=== PATIENT | female | born 1935 | race Caucasian/White ===

== ENCOUNTER 2017-08-15 17:30 | Observation (INO) | payer OTHER ==
[2017-08-15 19:03] LABS: BASO % 0.6 % (0-2.0); EOS % 1.1 % (0-4.5); HEMATOCRIT 43.7 % (32.4-45.2); HEMOGLOBIN 14.5 GM/dl (10.7-15.3); MCH 29.7 pg (25.7-33.7); MCHC 33.2 g/dl (32.0-36.0); MEAN CELL VOLUME 89.5 fl (80-96); MEAN PLT VOLUME 8.9 fl (7.5-11.1); MONO % 7.9 % (3.8-10.2); NEUT % 76.4 % (42.8-82.8); PLATELET COUNT 230 K/MM3 (134-434); RBC 4.89 M/mm3 (3.60-5.2); RDW 14.8 % (11.6-15.6); WHITE BLOOD COUNT 8.2 K/mm3 (4.0-10.8)
--- NOTE | 2017-08-15 19:04 | PDOC ---
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 Liriano's office with facial cellulitis. Patient has been having recurring epistaxis since being placed on Eliquis, yesterday was noted to have redness to the right Allan, today it extended to the right face with some soft tissue swelling. She went to see Dr. Liriano, who referred to the emergency department for IV antibiotics and likely admission. No dental pain, no painful or difficulty swallowing, no difficulty breathing. No fevers or chills. Past History - Past Medical History Allergies/Adverse Reactions: Allergies Allergy/AdvReac Type Severity Reaction Status Date / Time acetaminophen [From Percocet] Allergy Severe delirium Verified 08/15/17 17:31 MEAGHAN Inhibitors Allergy Intermediate cough Verified 08/15/17 17:32 oxycodone HCl [From Percocet] Allergy Intermediate delirium Verified 08/15/17 17 :32 Home Medications: Ambulatory Orders Apixaban [Eliquis] 5 mg PO BID 08/15/17 Ascorbic Acid [C-1000] 1,000 mg PO DAILY 08/15/17 Atenolol [Tenormin] 50 mg PO DAILY 08/15/17 Atorvastatin Ca [Lipitor] 80 mg PO HS 08/15/17 Bimatoprost [Lumigan] 1 drop IO DAILY 08/15/17 Calcium Citrate/Vitamin D3 [Calcitrate + Vit D Caplet] 1 tab PO DAILY 08/15/17 Famotidine 20 mg PO DAILY 08/15/17 Furosemide [Lasix] 40 mg PO DAILY 08/15/17 Levothyroxine [Synthroid -] 25 mcg PO DAILY 08/15/17 Mv-Min/FA/Vit K/Lycop/Lut/Zeax [Ocuvite Eye Plus Multi Tablet] 1 tab PO DAILY Potassium Chloride 20 meq PO DAILY 08/15/17 Tamsulosin HCl 0.4 mg PO DAILY 08/15/17 Timolol [Betimol] 5 ml OP DAILY 08/15/17 Valsartan 160 mg PO DAILY 08/15/17 Cardiac Disorders: Yes (A FIB) CVA: Yes COPD: No Diabetes: Yes HTN: Yes Other medical history: HERPES ZOSTER,OSTEOPOROSIS,ARTHRITIS, HYPONATREMIA, HYPOTHYROIDISM,HEMATURIA - Suicide/Smoking/Psychosocial Hx Smoking History: Never smoked Have you smoked in the past 12 months: No Information on smoking cessation initiated: No Hx Alcohol Use: No Drug/Substance Use Hx: No Substance Use Type: Alcohol Review of Systems - Review of Systems Constitutional: No: Chills, Fever HEENTM: Yes: See HPI. No: Throat Swelling Respiratory: No: Cough, Shortness of Breath, Stridor Cardiac (ROS): No: Chest Pain ABD/GI: No: Blood Streaked Bowels, Vomiting All Other Systems: Reviewed and Negative *Physical Exam - Vital Signs Last Vital Signs Temp Pulse Resp BP Pulse Ox 98.4 F 88 16 136/79 97 08/15/17 17:31 08/15/17 17:31 08/15/17 17:31 08/15/17 17:31 08/15/17 17:31 - Physical Exam Comments: 08/15/17 19:04 Afebrile. GENERAL: The patient is awake, alert, and fully oriented, in no acute distress. HEAD: Normal with no signs of trauma. EYES: PERRL, EOMI, sclera anicteric, conjunctiva clear with no pallor. ENT: R naris inflamed and erythematous, tender to touch. erythema extending to R face and neck. There is tender swelling to R soft tissue over mandible, ? salivary gland but no visible calcification or obstruction. no LAD. oropharynx clear without exudates or stridor. Moist mucous membranes. NECK: Normal range of motion, supple without lymphadenopathy, JVD, or masses. LUNGS: Breath sounds equal, clear to auscultation bilaterally. No wheeze/ crackles. HEART: normal rate, irregular rhythm, normal S1 and S2 without murmur or rub. ABDOMEN: Soft/nontender/nondistended. BS wnl. No guarding or rebound. No palpable masses. No hepatosplenomegaly. EXTREMITIES: Normal range of motion, no edema. 2+ distal pulses. No cords, erythema, or tenderness. NEUROLOGICAL: Cranial nerves II through XII grossly intact. Normal speech, normal gait. PSYCH: Normal mood, normal affect. SKIN: as noted Heart Score/ECG Review #1 ECG reviewed & interpreted by me at: 18:48 08/15/17 19:07 Atrial fibrillation at 106, no acute ischemic changes. ED Treatment Course - LABORATORY CBC & Chemistry Diagram: 08/15/17 18:40 08/15/17 18:39 Medical Decision Making - Medical Decision Making 08/15/17 19:07 82-year-old female from Dr. Liriano's office for admission for right facial cellulitis. Question superimposed salivary gland obstruction versus facial cellulitis extending from right naris. No airway involvement, well-appearing, afebrile. Labs sent Will start empiric IV vancomycin given recent admission for CVA Admission, symphony covering Dr. Liriano. 08/15/17 19:19 normal wbc. Accepted for inpatient med/surg by Dr. Galeana *DC/Admit/Observation/Transfer Diagnosis at time of Disposition: Salivary gland obstruction Cellulitis Qualifiers: Site of cellulitis: face Qualified Code(s): L03.211 - Cellulitis of face - Discharge Dispostion Condition at time of disposition: Stable Admit: Yes - Referrals - Patient Instructions - Post Discharge Activity
[2017-08-15 19:06] LABS: INR 1.68 (0.82-1.09); PROTHROMBIN TIME (PATIENT) 18.6 SEC (10.2-13.0)
[2017-08-15 19:11] LABS: ALBUMIN 3.3 g/dl (3.5-5.0); ALK PHOS 171 U/L (32-92); ANION GAP 4 (8-16); BILIRUBIN,TOTAL 1.1 mg/dl (0.2-1.0); BLOOD UREA NITROGEN 16 mg/dl (7-18); CALCIUM 8.7 mg/dl (8.4-10.2); CHLORIDE 98 mmol/L (98-107); CO2 30 mmol/L (22-28); GLUCOSE,RANDOM 115 mg/dl (74-106); POTASSIUM 3.5 mmol/L (3.5-5.1); SGOT/AST 26 U/L (10-42); SGPT/ALT 32 U/L (10-40); SODIUM 132 mmol/L (136-145); TOT PROT 6.4 g/dl (6.4-8.3)
[2017-08-15] MEDS ORDERED: VANCOMYCIN 1,000 MG in DEXTROSE 5%-WATER - 250 ML IVPB ONE (19:11)
[2017-08-15] MEDS ORDERED: VANCOMYCIN 1,000 MG VIAL (RESTRICTED TO ID ONLY) ONE (19:20)
[2017-08-15 19:30] LABS: CREATININE 0.8 mg/dl (0.6-1.3)
[2017-08-15] MEDS ORDERED: PIPERACILLIN/TAZOB 3.375 GM/50 ML PRE-DOCKED IVPB ONE (22:37)
[2017-08-15 22:45] VITALS: BMI 23.7
[2017-08-15] MEDS ORDERED: SODIUM CHLORIDE 1,000 ML IV SCH (22:45)
[2017-08-15] MEDS: ATORVASTATIN CA 80 MG TABLET (FP) PO SCH (22:57)
[2017-08-15] MEDS: APIXABAN 5 MG TABLET PO SCH (22:58)
--- NOTE | 2017-08-16 01:05 | HP ---
CHIEF COMPLAINT: redness right side of face with swelling PCP: Deandra HISTORY OF PRESENT ILLNESS: This is an 82 year old female with a past medical history significant for recent CVA, afib on eliquis with chronic nose bleeds. Pt reports she had a scab on the inside of her right nostril and then Monday her son noticed it was getting red and then when she awoke on Monday the right side of her face was swollen. Pt also reports pain to the jawline. ER course was notable for: (1) WBC 8.2 (2) Sodium 132 Recent Travel: pt denies PAST MEDICAL HISTORY: HTN, CVA in April, Afib on Eliquis, herpes zoster L thigh, osteoporosis, osteoarthritis, hyponatremia, hypothyroidism, hematuria, bladder infections PAST SURGICAL HISTORY: hysterectomy tonsillectomy L TKR 2005 R TKR 2007 Social History: Smoking: pt denies Alcohol: pt denies Drugs: pt denies Family History: mother age 89, complications of hip fracture, [place] age 84 father age 78, unk no siblings Allergies acetaminophen [From Percocet] Allergy (Severe, Verified 08/15/17 17:31) delirium MEAGHAN Inhibitors Allergy (Intermediate, Verified 08/15/17 17:32) cough oxycodone HCl [From Percocet] Allergy (Intermediate, Verified 08/15/17 17:32) delirium HOME MEDICATIONS: 3 Medication Instructions Recorded Apixaban [Eliquis] 5 mg PO BID 08/15/17 Ascorbic Acid [C-1000] 1,000 mg PO DAILY 08/15/17 Atenolol [Tenormin] 50 mg PO DAILY 08/15/17 Atorvastatin Ca [Lipitor] 80 mg PO HS 08/15/17 Bimatoprost [Lumigan] 1 drop IO DAILY 08/15/17 Calcium Citrate/Vitamin D3 1 tab PO DAILY 08/15/17 [Calcitrate + Vit D Caplet] Famotidine 20 mg PO DAILY 08/15/17 Furosemide [Lasix] 40 mg PO DAILY 08/15/17 Levothyroxine [Synthroid -] 25 mcg PO DAILY 08/15/17 Mv-Min/FA/Vit K/Lycop/Lut/Zeax 1 tab PO DAILY 08/15/17 [Ocuvite Eye Plus Multi Tablet] Potassium Chloride 20 meq PO DAILY 08/15/17 Tamsulosin HCl 0.4 mg PO DAILY 08/15/17 Timolol [Betimol] 5 ml OP DAILY 08/15/17 Valsartan 160 mg PO DAILY 08/15/17 REVIEW OF SYSTEMS CONSTITUTIONAL: Absent: fever, chills, diaphoresis, generalized weakness, malaise, loss of appetite, weight change HEENT: Present: right facial swelling and erythema Absent: rhinorrhea, nasal congestion, throat pain, throat swelling, difficulty swallowing, mouth swelling, ear pain, eye pain, visual changes CARDIOVASCULAR: Absent: chest pain, syncope, palpitations, irregular heart rate, lightheadedness , peripheral edema RESPIRATORY: Absent: cough, shortness of breath, dyspnea with exertion, orthopnea, wheezing, stridor, hemoptysis GASTROINTESTINAL: Absent: abdominal pain, abdominal distension, nausea, vomiting, diarrhea, constipation, melena, hematochezia GENITOURINARY: Absent: dysuria, frequency, urgency, hesitancy, hematuria, flank pain, genital pain MUSCULOSKELETAL: Absent: myalgia, arthralgia, joint swelling, back pain, neck pain SKIN: Absent: rash, itching, pallor HEMATOLOGIC/IMMUNOLOGIC: Absent: easy bleeding, easy bruising, lymphadenopathy, frequent infections ENDOCRINE: Absent: unexplained weight gain, unexplained weight loss, heat intolerance, cold intolerance NEUROLOGIC: Absent: headache, focal weakness or paresthesias, dizziness, unsteady gait, seizure, mental status changes, bladder or bowel incontinence PSYCHIATRIC: Absent: anxiety, depression, suicidal or homicidal ideation, hallucinations. PHYSICAL EXAMINATION Vital Signs - 24 hr 3 08/15/17 08/15/17 08/15/17 17:31 20:48 22:36 Temperature 98.4 F 98.4 F 97.5 F L Pulse Rate 88 88 79 Respiratory 16 16 18 Rate Blood Pressure 136/79 136/79 147/73 O2 Sat by Pulse 97 97 96 Oximetry (%) GENERAL: Awake, alert, and fully oriented, in no acute distress. HEAD: Normal with no signs of trauma. EYES: Pupils equal, round and reactive to light, extraocular movements intact, sclera anicteric, conjunctiva clear. No lid lag. EARS, NOSE, THROAT: Ears normal, nares patent, oropharynx clear without exudates. Moist mucous membranes. left nare with erytheam and swelling, left cheek and lower mandible with erythema and swelling, + hot to touch. NECK: Normal range of motion, supple without lymphadenopathy, JVD, or masses. r ight neck with swelling, erythma, no discrete abscess palpated LUNGS: Breath sounds equal, clear to auscultation bilaterally. No wheezes, and no crackles. No accessory muscle use. HEART: Regular rate and rhythm, normal S1 and S2 without murmur, rub or gallop. ABDOMEN: Soft, nontender, not distended, normoactive bowel sounds, no guarding, no rebound, no masses. No hepatomegaly or splenomegaly. MUSCULOSKELETAL: Normal range of motion at all joints. No bony deformities or tenderness. No CVA tenderness. UPPER EXTREMITIES: 2+ pulses, warm, well-perfused. No cyanosis. No clubbing. No peripheral edema. LOWER EXTREMITIES: 2+ pulses, warm, well-perfused. No calf tenderness. No peripheral edema. NEUROLOGICAL: Cranial nerves II-XII intact. Normal speech. Normal gait. PSYCHIATRIC: Cooperative. Good eye contact. Appropriate mood and affect. SKIN: Warm, dry, normal turgor, no rashes or lesions noted, normal capillary refill. Laboratory Results - last 24 hr 3 08/15/17 08/15/17 08/15/17 18:39 18:39 18:40 WBC 8.2 RBC 4.89 Hgb 14.5 Hct 43.7 MCV 89.5 MCH 29.7 MCHC 33.2 RDW 14.8 Plt Count 230 MPV 8.9 Neutrophils % 76.4 Lymphocytes % 14.0 Monocytes % 7.9 Eosinophils % 1.1 Basophils % 0.6 PT with INR 18.6 H INR 1.68 H Sodium 132 L Potassium 3.5 Chloride 98 Carbon Dioxide 30 H Anion Gap 4 L BUN 16 D Creatinine 0.8 Creat Clearance w eGFR > 60 Random Glucose 115 H Calcium 8.7 Total Bilirubin 1.1 H D AST 26 D ALT 32 D Alkaline Phosphatase 171 H D Total Protein 6.4 Albumin 3.3 L ECG atrial fibrillation with RVR nonspecific ST and T wave abnormality Vent rate 106, QTC 611 ASSESSMENT/PLAN: 82yF with PMH HTN, CVA in April, Afib on Eliquis, herpes zoster L thigh, osteoporosis, osteoarthritis, hyponatremia, hypothyroidism, hematuria, bladder infections presented to the ED with swelling, erythema to right nare, cheek, lower jaw and neck. Right facial cellulitis - given vanco in the ED, added zosyn - ID consult - CT soft tissue neck without contrast to r/o stone or abscess Mild hyponatremia - trial gentle iv hydration - check TSH afib - cont eliquis - cont atenolol HTN - cont valsartan, atenolol h/o CVA - cont lipitor and eliquis hypothyroidism - cont synthroid DVT PPX - deferred for now, reassess if LOS >48h FEN - NS @ 50cc/hr - repeat BMP in AM - low sodium diet as tolerated Dispo Pt admitted for further observation. Visit type - Emergency Visit Emergency Visit: Yes ED Registration Date: 08/15/17 Care time: The patient presented to the Emergency Department on the above date and was hospitalized for further evaluation of their emergent condition. - New Patient This patient is new to me today: Yes Date on this admission: 08/16/17 - Critical Care Critical Care patient: No Hospitalist Screening - Colonoscopy Questionnaire Colonoscopy Questionnaire: Colonoscopy Questionnaire - Patient: 50 - 75 years old and never had a screening colonoscopy: No History of colon or rectal polyps, or CA: No History of IBD, Crohn's disease or UC: No History of abdominal radiation therapy as a child: No - Relative: 1 with colon or rectal CA, or polyps at age 60 or younger: No Colon or rectal CA diagnosed at age 45 or younger: No Multiple relatives with colon or rectal CA: No - Outcome: Screening Result: Negative Screen
--- NOTE | 2017-08-16 07:50 | PN ---
Physical Exam: SUBJECTIVE: Patient seen and examined, reports less pain to right side of face, denies any tactile fevers OBJECTIVE: patient is a 82 y/o female with a past medical history of cva ( eliquis), afib, and chronic nose bleeds. Patient was admitted from the emergency department for right facial cellulitis. Vital Signs Period Temp Pulse Resp BP Sys/Patton Pulse Ox Last 24 Hr 97.5 F-98.4 F 79-88 16-19 136-147/70-79 95-97 GENERAL: The patient is awake, alert, and fully oriented, in no acute distress. HEAD:no signs of trauma, right submandilble no fluctance noted, scant erythema noted. EYES: PERRL, extraocular movements intact, sclera anicteric, conjunctiva clear. No ptosis. ENT: Ears normal, nares patent, oropharynx clear without exudates, moist mucous membranes. NECK: Trachea midline, full range of motion, supple. LUNGS: Breath sounds equal, clear to auscultation bilaterally, no wheezes, no crackles, no accessory muscle use. HEART: Regular rate and rhythm, S1, S2 without murmur, rub or gallop. ABDOMEN: Soft, nontender, nondistended, normoactive bowel sounds, no guarding, no rebound, no hepatosplenomegaly, no masses. EXTREMITIES: 2+ pulses, warm, well-perfused, no edema. NEUROLOGICAL: Cranial nerves II through XII grossly intact. Normal speech, gait not observed. PSYCH: Normal mood, normal affect. SKIN: Warm, dry, normal turgor, no rashes or lesions noted Laboratory Results - last 24 hr 08/15/17 08/15/17 08/15/17 18:39 18:39 18:40 WBC 8.2 RBC 4.89 Hgb 14.5 Hct 43.7 MCV 89.5 MCH 29.7 MCHC 33.2 RDW 14.8 Plt Count 230 MPV 8.9 Neutrophils % 76.4 Lymphocytes % 14.0 Monocytes % 7.9 Eosinophils % 1.1 Basophils % 0.6 PT with INR 18.6 H INR 1.68 H Sodium 132 L Potassium 3.5 Chloride 98 Carbon Dioxide 30 H Anion Gap 4 L BUN 16 D Creatinine 0.8 Creat Clearance w eGFR > 60 Random Glucose 115 H Calcium 8.7 Total Bilirubin 1.1 H D AST 26 D ALT 32 D Alkaline Phosphatase 171 H D Total Protein 6.4 Albumin 3.3 L Active Medications Generic Name Dose Route Start Last Admin Trade Name Stacy PRN Reason Stop Dose Admin Apixaban 5 mg 08/15/17 23:00 08/15/17 22:58 Eliquis - PO 5 mg BID CHEKO Administration Ascorbic Acid 1,000 mg 08/16/17 10:00 Vitamin C - PO DAILY PENDING SALE TO [facility] Atenolol 50 mg 08/16/17 10:00 Tenormin - PO DAILY PENDING SALE TO [facility] Atorvastatin Calcium 80 mg 08/15/17 23:00 08/15/17 22:57 Lipitor - PO 80 mg HS CHEKO Administration Calcium Carbonate/Cholecalciferol 1 tab 08/16/17 10:00 Os-Chandan 500+D - PO DAILY PENDING SALE TO [facility] Famotidine 20 mg 08/16/17 10:00 Pepcid - PO DAILY PENDING SALE TO [facility] Furosemide 40 mg 08/16/17 10:00 Lasix - PO DAILY PENDING S[facility] TO [facility] Sodium Chloride 1,000 mls @ 50 mls/hr 08/15/17 22:45 08/15/17 22:58 Normal Saline - IV 08/16/17 22:36 50 mls/hr ASDIR CHEKO Administration Latanoprost 1 drop 08/16/17 10:00 Xalatan 0.005% Eye Drops - OU DAILY [facility]ENDING [facility] TO [facility] Multivitamins/Minerals 1 each 08/16/17 10:00 Theragran-M PO DAILY PENDING SALE TO [facility] Potassium Chloride 20 meq 08/16/17 10:00 K-Dur - PO DAILY PENDING SALE TO [facility] Tamsulosin HCl 0.4 mg 08/16/17 08:30 Flomax - PO DAILY@0830 [facility]END[facility] TO [facility] Timolol Maleate 1 drop 08/16/17 10:00 Timoptic 0.5% OU DAILY [facility] TO [facility] Valsartan 160 mg 08/16/17 10:00 Diovan - PO DAILY [facility]END[facility] TO [facility] ECG atrial fibrillation with RVR nonspecific ST and T wave abnormality Vent rate 106, QTC [address] soft tissue neck: fluid collection of right lateral face, no discrete abscess ASSESSMENT/PLAN: 1) ID Right facial cellulitis - ct scan reviewed, continue vanc and rocephin - no leukocytosis, patient is afebrile - ID consulted and following 2) cardiovascular afib - rate controlled, continue eliquis and atenolol hypertension - continue valsartan, b/p at goal 3) neuro cva - continue lipitor - fall precautions 4) endo hypothyroidism - cont synthroid F/E/N hyponatremia -secondary to hypovolemia, resolving with gentle ivf regular diet replete magnesium DVT PPX - eliquis Dispo Pt admitted for further observation. Visit type - Emergency Visit Emergency Visit: Yes ED Registration Date: 08/15/17 Care time: The patient presented to the Emergency Department on the above date and was hospitalized for further evaluation of their emergent condition. - New Patient This patient is new to me today: No - Critical Care Critical Care patient: No
[2017-08-16] MEDS: TAMSULOSIN HCL 0.4 MG CAP.ER.24H (FP) PO SCH (08:35)
[2017-08-16 09:09] LABS: BASO % 0.8 % (0-2.0); EOS % 2.7 % (0-4.5); HEMATOCRIT 40.8 % (32.4-45.2); HEMOGLOBIN 13.7 GM/dl (10.7-15.3); MCHC 33.5 g/dl (32.0-36.0); MEAN CELL VOLUME 89.6 fl (80-96); MEAN PLT VOLUME 8.8 fl (7.5-11.1); MONO % 9.9 % (3.8-10.2); NEUT % 67.6 % (42.8-82.8); PLATELET COUNT 214 K/MM3 (134-434); RBC 4.56 M/mm3 (3.60-5.2); RDW 14.9 % (11.6-15.6); WHITE BLOOD COUNT 6.2 K/mm3 (4.0-10.8)
[2017-08-16] MEDS ORDERED: PT OWN MED DRAWER 7, Y5N ONE (09:12)
[2017-08-16 09:20] LABS: ANION GAP 6 (8-16); BLOOD UREA NITROGEN 15 mg/dl (7-18); CALCIUM 8.6 mg/dl (8.4-10.2); CHLORIDE 101 mmol/L (98-107); CO2 27 mmol/L (22-28); CREATININE 0.7 mg/dl (0.6-1.3); GLUCOSE,RANDOM 117 mg/dl (74-106); MAGNESIUM 1.7 mg/dL (1.8-2.4); PHOSPHOROUS 3.6 mg/dl (2.5-4.6); POTASSIUM 3.8 mmol/L (3.5-5.1); SODIUM 134 mmol/L (136-145)
[2017-08-16] MEDS: VALSARTAN 160 MG TABLET (UD) PO SCH (09:35)
[2017-08-16] MEDS: CALCIUM 500MG/VIT-D 200 UNITS COMBO TABLET (FP) PO SCH (09:35)
[2017-08-16] MEDS: APIXABAN 5 MG TABLET PO SCH ×2 (09:35→21:30)
[2017-08-16] MEDS: FUROSEMIDE 40 MG TABLET (FP) PO SCH (09:35)
[2017-08-16] MEDS: POTASSIUM CHLORIDE TABS 20 MEQ TABLET.ER (FP) PO SCH (09:35)
[2017-08-16] MEDS: FAMOTIDINE 20 MG TABLET PO SCH (09:36)
[2017-08-16] MEDS: MULTIVITAMINS THER W-MINERALS COMBO TABLET (FP) PO SCH (09:36)
[2017-08-16] MEDS: ATENOLOL 50 MG TABLET (FP) PO SCH (09:36)
[2017-08-16] MEDS: ASCORBIC ACID 500 MG TABLET (FP) PO SCH (09:36)
--- NOTE | 2017-08-16 09:49 | EKG ---
Test Reason : Blood Pressure : / mmHG Vent. Rate : 106 BPM Atrial Rate : 090 BPM P-R Int : 000 ms QRS Dur : 084 ms QT Int : 460 ms P-R-T Axes : 000 017 197 degrees QTc Int : 611 ms ATRIAL FIBRILLATION WITH RAPID VENTRICULAR RESPONSE NONSPECIFIC ST AND T WAVE ABNORMALITY ABNORMAL ECG NO PREVIOUS ECGS AVAILABLE Confirmed by JEANETTE PADILLA MD ([id number]) on 08/16/2017 9:49:08 AM Referred By: DR SALINAS Confirmed By:JEANETTE PADILLA MD
[2017-08-16] MEDS ORDERED: TIMOLOL 0.5% OPHTHALMIC SOL 5 ML BOTTLE OU SCH (10:00)
[2017-08-16] MEDS ORDERED: APIXABAN 5 MG TABLET PO SCH (10:00)
--- NOTE | 2017-08-16 10:29 | PN ---
Progress Note (short form) - Note Progress Note: ID Consult dictated R facial cellulitis Await c/s, CT Empiric vancomycin/ ceftriaxone
[2017-08-16] MEDS: CEFTRIAXONE 1 G/50 ML PREMIX 50 ML IVPB SCH (11:05)
[2017-08-16] MEDS ORDERED: MAGNESIUM SULF 50% (8.12 MEQ/2 ML-1 GM VIAL) IVPB ONE (11:20)
[2017-08-16] MEDS ORDERED: MAGNESIUM 1GM/D5W - 1 GM/100 ML IVPB IVPB ONE (11:45)
--- NOTE | 2017-08-16 12:22 | CONS ---
DATE OF CONSULTATION: DATE OF DICTATION: 08/16/2017 REASON FOR CONSULTATION: The patient is an 82-year-old female who is evaluated for right facial cellulitis. HISTORY OF PRESENT ILLNESS: The patient has a history of epistaxis on Eliquis. She reports that 1 day prior to admission she developed redness surrounding the right naris extending to the right face. She was evaluated and referred to the emergency room for facial cellulitis. She was empirically treated with vancomycin and Zosyn. At the present time, she is awake and alert. She has no complaints of facial pain. She denies any traumatic injury. No complaints of sinus or dental pain. No fever or chills. PAST MEDICAL HISTORY: Positive for stroke, hypertension, history of herpes zoster, left thigh, osteoporosis, hypothyroidism, hyponatremia. PAST SURGICAL HISTORY: Status post hysterectomy, tonsillectomy, bilateral total knee replacements. ALLERGIES: TYLENOL, MEAGHAN INHIBITOR, OXYCODONE. SOCIAL HISTORY: Resides at home. Nonsmoker. Occasional ETOH. SYSTEMS REVIEW:Neurologic: No loss of consciousness, seizure activity or focal weakness. Cardiac: Negative chest pain or palpitations. Respiratory: Negative cough or sputum production. Gastrointestinal: Negative vomiting or diarrhea. Genitourinary: Negative for urinary tract infection. LABORATORY DATA: White count 6.2, hematocrit 40.8, platelet count 214. BUN 15, creatinine 0.7, total bilirubin 1.1, alkaline phosphatase 171, AST 26. PHYSICAL EXAMINATION:General: The patient is out of bed to chair. She is awake and alert. She is in no acute distress, not acutely toxic appearing. Vital Signs: Temperature 97.9, blood pressure 140/70, pulse 86, regular, respirations 19 per minute. HEENT: Sclerae are anicteric. Examination of the face: There is erythema present on the right naris. There is also swelling of the right face with erythema in the malar area. No tenderness over the sinuses. Cardiac: Heart sounds S1, S2. Lungs: Clear. Abdomen: Soft, nontender. Extremities: Negative for edema. IMPRESSION: 1. Right facial cellulitis. 2. Possible sepsis secondary to facial cellulitis. 3. Status post recent cerebrovascular accident. RECOMMENDATIONS: Await culture results. CAT scan of the face and periorbital areas. Empiric antibiotic coverage with vancomycin and ceftriaxone. Will follow. Thank you for the kind referral. BENNIE PRICE M.D. PENNY/[id number]
[2017-08-16] MEDS: LACTOBACILLUS ACIDOPHILUS 1 EACH TAB (FP) PO SCH (13:15)
[2017-08-16] MEDS ORDERED: VANCOMYCIN 1 GRAM (PRE-DOCKED) 1,000 MG/250 ML BAG IVPB SCH (18:00)
[2017-08-16] MEDS: ATORVASTATIN CA 80 MG TABLET (FP) PO SCH (21:34)
[2017-08-16] MEDS ORDERED: LATANOPROST 0.005% OPHTH SOLN 2.5ML BOTTLE OU SCH (22:00)
[2017-08-17 07:10] VITALS: BP 138/79; PULSE 54; TEMP 97.6
[2017-08-17] MEDS: LACTOBACILLUS ACIDOPHILUS 1 EACH TAB (FP) PO SCH (09:11)
[2017-08-17] MEDS: VALSARTAN 160 MG TABLET (UD) PO SCH (09:11)
[2017-08-17] MEDS: APIXABAN 5 MG TABLET PO SCH (09:12)
[2017-08-17] MEDS: POTASSIUM CHLORIDE TABS 20 MEQ TABLET.ER (FP) PO SCH (09:12)
[2017-08-17] MEDS: TAMSULOSIN HCL 0.4 MG CAP.ER.24H (FP) PO SCH (09:12)
[2017-08-17] MEDS: FUROSEMIDE 40 MG TABLET (FP) PO SCH (09:12)
[2017-08-17] MEDS: FAMOTIDINE 20 MG TABLET PO SCH (09:13)
[2017-08-17] MEDS: ATENOLOL 50 MG TABLET (FP) PO SCH (09:13)
[2017-08-17] MEDS: CALCIUM 500MG/VIT-D 200 UNITS COMBO TABLET (FP) PO SCH (09:13)
[2017-08-17] MEDS: ASCORBIC ACID 500 MG TABLET (FP) PO SCH (09:14)
[2017-08-17] MEDS: MULTIVITAMINS THER W-MINERALS COMBO TABLET (FP) PO SCH (09:14)
[2017-08-17] MEDS: CEFTRIAXONE 1 G/50 ML PREMIX 50 ML IVPB SCH (09:15)
--- NOTE | 2017-08-17 10:08 | PN ---
Progress Note, Physician History of Present Illness: Awake, alert No c/o facial pain No fever/ chills Afebrile WBC WNL BC (-) CT no abscess - Current Medication List Current Medications: Active Medications Apixaban (Eliquis -) 5 mg PO BID [facility] Last Admin: 08/17/17 09:12 Dose: 5 mg Ascorbic Acid (Vitamin C -) 1,000 mg PO DAILY [facility] Last Admin: 08/17/17 09:14 Dose: 1,000 mg Atenolol (Tenormin -) 50 mg PO DAILY [facility] Last Admin: 08/17/17 09:13 Dose: 50 mg Atorvastatin Calcium (Lipitor -) 80 mg PO HS [facility] Last Admin: 08/16/17 21:34 Dose: Not Given Calcium Carbonate/Cholecalciferol (Os-Chandan 500+D -) 1 tab PO DAILY [facility] Last Admin: 08/17/17 09:13 Dose: 1 tab Famotidine (Pepcid -) 20 mg PO DAILY [facility] Last Admin: 08/17/17 09:13 Dose: 20 mg Furosemide (Lasix -) 40 mg PO DAILY [facility] Last Admin: 08/17/17 09:12 Dose: 40 mg Vancomycin HCl (Vancomycin (Pre-Docked)) 1,000 mg in 250 mls @ 166.667 mls/hr IVPB Q24H [facility] Last Admin: 08/16/17 18:10 Dose: 166.667 mls/hr CEFTRIAXONE 1 G/50 ML PREMIX (Ceftriaxone 1 Gm-D5w Bag) 50 mls @ 100 mls/hr IVPB DAILY [facility] Last Admin: 08/17/17 09:15 Dose: 100 mls/hr Lactobacillus Acidophilus (Bacid -) 1 tab PO DAILY [facility] Last Admin: 08/17/17 09:11 Dose: 1 tab Latanoprost (Xalatan 0.005% Eye Drops -) 1 drop OU HS [facility] Last Admin: 08/16/17 21:34 Dose: 1 drop Multivitamins/Minerals (Theragran-M) 1 each PO DAILY [facility] Last Admin: 08/17/17 09:14 Dose: 1 each Potassium Chloride (K-Dur -) 20 meq PO DAILY [facility] Last Admin: 08/17/17 09:12 Dose: 20 meq Tamsulosin HCl (Flomax -) 0.4 mg PO DAILY@0830 [facility] Last Admin: 08/17/17 09:12 Dose: 0.4 mg Timolol Maleate (Timoptic 0.5%) 1 drop OU DAILY [facility] Last Admin: 08/16/17 11:27 Dose: 1 drop Valsartan (Diovan -) 160 mg PO DAILY [facility] Last Admin: 08/17/17 09:11 Dose: 160 mg - Objective Vital Signs: Vital Signs Temperature 97.6 F 08/17/17 06:00 Pulse Rate 54 L 08/17/17 06:00 Respiratory Rate 18 08/17/17 08:45 Blood Pressure 138/79 08/17/17 06:00 O2 Sat by Pulse Oximetry (%) 96 08/17/17 08:45 Constitutional: Yes: No Distress Eyes: Yes: Conjunctiva Clear HENT: Yes: Other (minimal erythema R nares) Cardiovascular: Yes: Regular Rate and Rhythm, S1, S2 Respiratory: Yes: CTA Bilaterally Gastrointestinal: Yes: Normal Bowel Sounds, Soft Edema: No Labs: CBC, BMP 08/16/17 08:30 08/16/17 08:30 INR, PTT INR 1.68 (0.82-1.09) H 08/15/17 18:39 Assessment/Plan R facial cellulitis- improved Substitute po keflex 500mg bid x 7d
--- NOTE | 2017-08-17 11:02 | DS ---
Physical Exam: SUBJECTIVE: Patient seen and examined, reports feeling much improved, denies any pain or tactile fever. OBJECTIVE:This is an 82 year old female with a past medical history significant for recent CVA, afib on eliquis with chronic nose bleeds. Pt reports she had a scab on the inside of her right nostril and then Monday her son noticed it was getting red and then when she awoke on Monday the right side of her face was swollen. Pt also reports pain to the jawline. ER course was notable for: (1) WBC 8.2 (2) Sodium 132 Vital Signs Period Temp Pulse Resp BP Sys/Patton Pulse Ox Last 24 Hr 97.6 F-97.9 F 54-86 18-19 124-138/74-80 96-97 PHYSICAL EXAM GENERAL: The patient is awake, alert, and fully oriented, in no acute distress. HEAD:no signs of trauma, erythema resolved, slight swelling to the submandilbe. EYES: PERRL, extraocular movements intact, sclera anicteric, conjunctiva clear. No ptosis. ENT: Ears normal, nares patent, oropharynx clear without exudates, moist mucous membranes. NECK: Trachea midline, full range of motion, supple. LUNGS: Breath sounds equal, clear to auscultation bilaterally, no wheezes, no crackles, no accessory muscle use. HEART: Regular rate and rhythm, S1, S2 without murmur, rub or gallop. ABDOMEN: Soft, nontender, nondistended, normoactive bowel sounds, no guarding, no rebound, no hepatosplenomegaly, no masses. EXTREMITIES: 2+ pulses, warm, well-perfused, no edema. NEUROLOGICAL: Cranial nerves II through XII grossly intact. Normal speech, gait not observed. PSYCH: Normal mood, normal affect. SKIN: Warm, dry, normal turgor, no rashes or lesions noted LABS Laboratory Results - last 24 hr 08/16/17 08:30 TSH 1.65 CBC WBC 6.2 K/mm3 (4.0-10.8) 08/16/17 08:30 RBC 4.56 M/mm3 (3.60-5.2) 08/16/17 08:30 Hgb 13.7 GM/dl (10.7-15.3) 08/16/17 08:30 Hct 40.8 % (32.4-45.2) 08/16/17 08:30 MCV 89.6 fl (80-96) 08/16/17 08:30 MCH 30.0 pg (25.7-33.7) 08/16/17 08:30 MCHC 33.5 g/dl (32.0-36.0) 08/16/17 08:30 RDW 14.9 % (11.6-15.6) 08/16/17 08:30 Plt Count 214 K/MM3 (134-434) 08/16/17 08:30 MPV 8.8 fl (7.5-11.1) 08/16/17 08:30 Neutrophils % 67.6 % (42.8-82.8) 08/16/17 08:30 Lymphocytes % 19.0 % (8-40) 08/16/17 08:30 Monocytes % 9.9 % (3.8-10.2) 08/16/17 08:30 Eosinophils % 2.7 % (0-4.5) 08/16/17 08:30 Basophils % 0.8 % (0-2.0) 08/16/17 08:30 CMP Sodium 134 mmol/L (136-145) L 08/16/17 08:30 Potassium 3.8 mmol/L (3.5-5.1) 08/16/17 08:30 Chloride 101 mmol/L (98-107) 08/16/17 08:30 Carbon Dioxide 27 mmol/L (22-28) 08/16/17 08:30 Anion Gap 6 (8-16) L 08/16/17 08:30 BUN 15 mg/dl (7-18) 08/16/17 08:30 Creatinine 0.7 mg/dl (0.6-1.3) 08/16/17 08:30 Creat Clearance w eGFR > 60 (>60) 08/15/17 18:39 Random Glucose 117 mg/dl (74-106) H 08/16/17 08:30 Calcium 8.6 mg/dl (8.4-10.2) 08/16/17 08:30 Phosphorus 3.6 mg/dl (2.5-4.6) 08/16/17 08:30 Magnesium 1.7 mg/dL (1.8-2.4) L 08/16/17 08:30 Total Bilirubin 1.1 mg/dl (0.2-1.0) H D 08/15/17 18:39 AST 26 U/L (10-42) D 08/15/17 18:39 ALT 32 U/L (10-40) D 08/15/17 18:39 Alkaline Phosphatase 171 U/L (32-92) H D 08/15/17 18:39 Total Protein 6.4 g/dl (6.4-8.3) 08/15/17 18:39 Albumin 3.3 g/dl (3.5-5.0) L 08/15/17 18:39 TSH 1.65 uIU/ml (0.358-3.74) 08/16/17 08:30 ECG atrial fibrillation with RVR nonspecific ST and T wave abnormality Vent rate 106, QTC [address] soft tissue neck: fluid collection of right lateral face, no discrete abscess HOSPITAL COURSE: Right facial cellulitis, ct scan, soft tissue reviewed. Patient was treated with vancomycin and rocephin for 48 hours. No leukocytosis, patient remained afebrile. ANDRES Wilcox consulted and followed. Patient has a past medical history of afib, rate controlled, continued eliquis and atenolol. Patient has a past medical history of hypertension, valsartan, b/p at goal. patient has a medical history of cva, lipitor continued throughout admission. synthroid home dose continued for hypothyroidsim. Date of Admission:08/15/17 Date of Discharge: 08/17/17 Minutes to complete discharge: 45 Discharge Summary Reason For Visit: FACIAL CELLULITIS Current Active Problems Cellulitis (Acute) Salivary gland obstruction (Acute) Condition: Stable - Instructions - Home Medications Comprehensive Discharge Medication List: Ambulatory Orders Apixaban [Eliquis] 5 mg PO BID 08/15/17 Ascorbic Acid [C-1000] 1,000 mg PO DAILY 08/15/17 Atenolol [Tenormin] 50 mg PO DAILY 08/15/17 Atorvastatin Ca [Lipitor] 80 mg PO HS 08/15/17 Bimatoprost [Lumigan] 1 drop IO DAILY 08/15/17 Calcium Citrate/Vitamin D3 [Calcitrate + Vit D Caplet] 1 tab PO DAILY 08/15/17 Furosemide [Lasix] 40 mg PO DAILY 08/15/17 Levothyroxine [Synthroid -] 25 mcg PO DAILY 08/15/17 Mv-Min/FA/Vit K/Lycop/Lut/Zeax [Ocuvite Eye Plus Multi Tablet] 1 tab PO DAILY RX: Famotidine 20 mg PO DAILY 08/15/17 RX: Potassium Chloride 20 meq PO DAILY 08/15/17 RX: Tamsulosin HCl 0.4 mg PO DAILY 08/15/17 RX: Valsartan 160 mg PO DAILY 08/15/17 Timolol [Betimol] 5 ml OP DAILY 08/15/17
== END 2017-08-17 15:21 | disposition home or self-care (01) ==
LOC: FER 17:30 → UNDOADMOB 20:48 → INTOOBSV 20:48 → FM/S 20:48
PROVIDERS: ADMIT Internal Medicine; ATTEND Nurse Practitioner Family
PROC: 3E03329 Introduction of Other Anti-infective into Peripheral Vein, Percutaneous Approach (ICD-10-PCS; principal; 2017-08-15)
PROC: 3E033GC Introduction of Other Therapeutic Substance into Peripheral Vein, Percutaneous Approach (ICD-10-PCS; 2017-08-15)
PROC: 3E0337Z Introduction of Electrolytic and Water Balance Substance into Peripheral Vein, Percutaneous Approach (ICD-10-PCS; 2017-08-15)
DX: L03.211 Cellulitis of face (principal); K11.8 Other diseases of salivary glands; E87.1 Hypo-osmolality and hyponatremia; I48.91 Unspecified atrial fibrillation; I10 Essential (primary) hypertension; E11.9 Type 2 diabetes mellitus without complications; E03.9 Hypothyroidism, unspecified; M81.0 Age-related osteoporosis without current pathological fracture; M19.90 Unspecified osteoarthritis, unspecified site; Z86.73 Personal history of transient ischemic attack (TIA), and cerebral infarction without residual deficits; Z79.01 Long term (current) use of anticoagulants; Z86.19 Personal history of other infectious and parasitic diseases; Z90.710 Acquired absence of both cervix and uterus; Z96.653 Presence of artificial knee joint, bilateral; Z88.2 Allergy status to sulfonamides; Z88.6 Allergy status to analgesic agent; Z88.8 Allergy status to other drugs, medicaments and biological substances
CPT/HCPCS: 36415; 70490-TC; 80048; 80053; 83735; 84100; 84443; 85025; 85610; 87040; 93005; 96361; 96365; 96367; 96375; 97116-GP; 97161-GP; 99282-25; G0378; J7030